=== PATIENT | female | born 1990 | race Caucasian/White ===

== ENCOUNTER 2025-02-07 09:52 | Emergency (ER) | payer MEDICAID, BC ==
[~2025-02-07] VITALS: Ht 162.6 cm; Wt 91.0 kg
[2025-02-07 10:01] VITALS: O2SAT 100
[2025-02-07 11:38] LABS: BASOPHILS % 0.4 % (0.0-2.0); EOSINOPHILS % 2.4 % (0.0-5.0); HEMATOCRIT. 35.9 % (36.0-48.0); HEMOGLOBIN. 12.0 g/dL (12.0-16.0); LYMPHOCYTES % 29.4 % (20.0-50.0); MEAN PLATELET VOLUME 10.7 fl (7.4-10.4); MONOCYTES % 8.2 % (2.0-8.0); NEUTROPHILS % 59.6 % (40.0-76.0); PLATELET 203 x1000/uL (130-400); RED BLOOD CELL COUNT 4.01 mill/uL (4.2-5.4); RED CELL DISTRIBUTION WIDTH 13.8 % (11.6-14.6)
[2025-02-07 11:55] LABS: CREATININE 0.6 mg/dL (0.6-1.0); HCG SCREEN POSITIVE; UREA NITROGEN BLOOD < 5 mg/dL (9-23)
[2025-02-07] MEDS ORDERED: PNV1TABL50 MT (12:43)
[2025-02-07 13:00] VITALS: BP 122/74; PULSE 81; RESP 16; TEMP 36.8; O2SAT 100
[2025-02-07 13:28] LABS: CLARITY URINE CLEAR (CLEAR); COLOR URINE YELLOW (YELLOW); GLUCOSE URINE NEGATIVE (NEGATIVE); KETONES URINE NEGATIVE (NEGATIVE); LEUKOCYTE ESTERASE URINE NEGATIVE (NEGATIVE); NITRITE URINE NEGATIVE (NEGATIVE); OCCULT BLOOD URINE NEGATIVE (NEGATIVE); PH URINE 6.5 (4.5-8.0); PROTEIN URINE NEGATIVE (NEGATIVE); SPECIFIC GRAVITY URINE 1.016 (1.005-1.030); UROBILINOGEN URINE 0.2 E.U./dL (0.2-1.0)
== END 2025-02-07 13:04 | disposition home or self-care (01) ==
LOC: ER 11:18
DX: O26.891 Other specified pregnancy related conditions, first trimester (principal); Z32.01 Encounter for pregnancy test, result positive; Z98.890 Other specified postprocedural states; Z3A.01 Less than 8 weeks gestation of pregnancy
CPT/HCPCS: 36415; 76801; 80048; 81003; 81025; 84703; 85025; 99284